=== PATIENT | male | born 1940 | race American Indian/Alaskan Native ===

== ENCOUNTER 2016-07-24 12:15 | Emergency (ER) | payer MEDICARE, OTHER ==
[2016-07-24 12:39] VITALS: BP 145/89
--- NOTE | 2016-07-24 12:47 | EDM.PDOC ---
ED HISTORY OF PRESENT ILLNESS - General Chief Complaint: Respiratory Problem Stated Complaint: [id number] CANT BREATHE PLUGGED UP Time Seen by Provider: 07/24/16 12:46 Source of Information: Reports: Patient History Limitations: Reports: No limitations - History of Present Illness INITIAL COMMENTS - FREE TEXT/NARRATIVE: 75 yo [place] male c/o fever last night and productive cough of green sputum X one month. PMHx. COPD Symptom Onset Date: 06/23/16 Symptom Onset Time: 12:00 Timing/Duration: Reports: Week(s): Severity: moderate Location, General: Reports: chest Worsens with: Reports: Breathing - Related Data Allergies/ADRs: Allergies Allergy/AdvReac Type Severity Reaction Status Date / Time cephalexin Allergy Hives Verified 07/24/16 12:39 Penicillins Allergy Hives Verified 07/24/16 12:39 Home Meds: Home Meds Acetaminophen [Tylenol] 325 mg PO Q4HR PRN 08/25/15 [History] Aspirin [Ecotrin] 325 mg PO DAILY 08/25/15 [History] Fluticasone/Salmeterol [Advair Diskus 500-50] 1 puff INH BID 08/25/15 [History] Lisinopril 20 mg PO DAILY 08/25/15 [History] Montelukast [Singulair] 10 mg PO BEDTIME 08/25/15 [History] Nitroglycerin [Nitrostat] 0.4 mg SL ASDIRECTED PRN 08/25/15 [History] Tamsulosin [Flomax] 0.4 mg PO BEDTIME 08/25/15 [History] Tiotropium [Spiriva HandiHaler] 18 mcg INH DAILY 08/25/15 [History] atorvaSTATin [Lipitor] 20 mg PO BEDTIME 08/25/15 [History] metFORMIN [Glucophage] 1,000 mg PO BIDMEALS 08/25/15 [History] Glimepiride [Amaryl] 2 mg PO WITHBREAKFAST 08/26/15 [History] Albuterol/Ipratropium [DuoNeb 3.0-0.5 MG/3 ML] 1 dose INH Q8HR PRN 11/10/15 [ History] Ferrous Sulfate 1 tab PO BID 11/10/15 [History] Omeprazole Magnesium [Prilosec Otc] 1 cap PO DAILY 11/10/15 [History] Magnesium 400 mg PO BID 07/24/16 [History] Metoprolol Succinate [Toprol XL] 25 mg PO DAILY 07/24/16 [History] Solifenacin Succinate [Vesicare] 10 mg PO DAILY 07/24/16 [History] amLODIPine [Norvasc] 10 mg PO DAILY 07/24/16 [History] Past Medical History Cardiovascular History: Reports: CAD, Heart Failure, High cholesterol, Hypertension, Pacemaker Respiratory History: Reports: Asthma, COPD Gastrointestinal History: Reports: GI bleed Genitourinary History: Reports: Acute renal failure, Prostate disorder Musculoskeletal History: Reports: Fracture Endocrine/Metabolic History: Reports: Diabetes, type II Oncologic (Cancer) History: Reports: Prostate - Past Surgical History HEENT Surgical History: Reports: Cataract surgery Cardiovascular Surgical History: Reports: Coronary artery bypass Other Cardiovascular Surgeries/Procedures: 4 vascular stents Musculoskeletal Surgical History: Reports: Other (see below) Other Musculoskeletal Surgeries/Procedures:: foot ankle fracture open reduction internal fixation Social & Family History - Family History Family Medical History: Noncontributory - Tobacco Use Smoking Status *Q: Former Smoker Years of Tobacco use: 44 Used Tobacco, but Quit: Yes Month Tobacco Last Used: unknown Second Hand Smoke Exposure: Yes - Caffeine Use Caffeine Use: Reports: Soda, Tea - Alcohol Use Days Per Week of Alcohol Use: 0 - Recreational Drug Use Recreational Drug Use: No ED ROS GENERAL - Review of Systems Review Of Systems: See Below Constitutional: Reports: no symptoms HEENT: Reports: No symptoms Respiratory: Reports: Cough, Sputum (green thick ) Cardiovascular: Reports: No symptoms Endocrine: Reports: no symptoms GI/Abdominal: Reports: No symptoms : Reports: no symptoms Musculoskeletal: Reports: no symptoms Skin: Reports: no symptoms Neurological: Reports: No Symptoms Psychiatric: Reports: No symptoms Hematologic/Lymphatic: Reports: no symptoms Immunologic: Reports: no symptoms ED EXAM, GENERAL - Physical Exam Exam: See Below Exam Limited By: No limitations General Appearance: alert, no apparent distress, obese Eye Exam: bilateral eye: EOMI Ears: normal external exam Nose: normal inspection Throat/Mouth: Normal inspection Head: atraumatic Neck: normal inspection, supple Respiratory/Chest: rhonchi (bilateral mainly expiratory) Cardiovascular: normal peripheral pulses GI/Abdominal: normal bowel sounds, soft Back Exam: normal inspection Extremities: normal inspection, normal range of motion Neurological: alert, oriented, CN II-XII intact Psychiatric: normal affect Skin Exam: Warm, Dry, Intact Lymphatic: no adenopathy Course - Vital Signs Last Recorded V/S: Last Vital Signs Temp 35.9 C 07/24/16 12:26 Pulse 75 07/24/16 12:26 Resp 16 07/24/16 12:26 BP 145/89 H 07/24/16 12:26 Pulse Ox 96 07/24/16 12:26 - Orders/Labs/Meds Labs: Laboratory Tests 07/24/16 07/24/16 07/24/16 Range/Units 13:20 13:20 13:20 WBC 7.8 (5.0-10.0) 10^3/uL RBC 4.05 L (4.6-6.2) 10^6/uL Hgb 13.3 L (14.0-18.0) g/dL Hct 39.1 L (40.0-54.0) % MCV 96.5 (80-100) fL MCH 32.8 (27.0-34.0) pg MCHC 34.0 (33.0-35.0) g/dL Plt Count 177 (150-450) 10^3/uL Neut % (Auto) 75.5 H (42.2-75.2) % Lymph % (Auto) 12.9 L (20.5-50.1) % [place] % (Auto) 8.4 H (2-8) % Eos % (Auto) 2.9 (1.0-3.0) % Baso % (Auto) 0.3 (0.0-1.0) % Sodium 141 (135-145) mmol/L Potassium 4.0 (3.6-5.0) mmol/L Chloride 106 (101-111) mmol/L Carbon Dioxide 26.0 (21.0-31.0) mmol/L Anion Gap 13.0 BUN 19 H (7-18) mg/dL Creatinine 1.0 (0.6-1.3) mg/dL Est Cr Clr Drug Dosing 67.96 mL/min Estimated GFR (MDRD) > 60 BUN/Creatinine Ratio 19.00 Glucose 101 (74-105) mg/dL Lactic Acid 1.3 (0.5-2.2) mmol/L Calcium 8.9 (8.4-10.2) mg/dl Total Bilirubin 0.8 (0.2-1.0) mg/dL AST 16 (10-42) IU/L ALT 14 (10-60) IU/L Alkaline Phosphatase 51 (42-121) IU/L B-Natriuretic Peptide 570 H (0-100) pg/ml Total Protein 6.9 (6.7-8.2) g/dl Albumin 4.0 (3.2-5.5) g/dl Globulin 2.9 Albumin/Globulin Ratio 1.38 Meds: Medications Discontinued Medications Generic Name Dose Route Start Last Admin Trade Name Mushtaq PRN Reason Stop Dose Admin Furosemide 20 mg 07/24/16 14:11 Lasix PO 07/24/16 14:12 ONETIME ONE Guaifenesin 1,200 mg 07/24/16 12:58 07/24/16 13:27 Mucinex PO 07/24/16 12:59 1,200 mg STAT ONE Administration Departure - Departure Time of Disposition: 14:12 Disposition: Home, Self-Care 01 Condition: fair Clinical Impression: CHF (congestive heart failure) Qualifiers: Congestive heart failure type: unspecified congestive heart failure type Congestive heart failure chronicity: unspecified congestive heart failure chronicity Qualified Code(s): I50.9 - Heart failure, unspecified COPD (chronic obstructive pulmonary disease) Qualifiers: COPD type: COPD with acute exacerbation Qualified Code(s): J44.1 - Chronic obstructive pulmonary disease with (acute) exacerbation Instructions: Chronic Obstructive Pulmonary Disease Exacerbation, [id number] Forms: ED Department Discharge Additional Instructions: Please take your medication as prescribed by your doctor F/U w/ your PCP Tuesday07/26/2016
[2016-07-24] MEDS ORDERED: guaiFENesin 600 MG Tab.ER PO ONE (12:58)
[2016-07-24 13:54] LABS: CHLORIDE,CL 106 mmol/L (101-111); SODIUM,NA 141 mmol/L (135-145)
[2016-07-24] MEDS ORDERED: Furosemide 20 MG Tab PO ONE (14:11)
== END 2016-07-24 14:33 | disposition home or self-care (01) ==
LOC: DL.ED 12:15
DX: I11.0 Hypertensive heart disease with heart failure (principal); I50.9 Heart failure, unspecified; J44.1 Chronic obstructive pulmonary disease with (acute) exacerbation; E78.00 Pure hypercholesterolemia, unspecified; J45.909 Unspecified asthma, uncomplicated; E11.9 Type 2 diabetes mellitus without complications; I25.810 Atherosclerosis of coronary artery bypass graft(s) without angina pectoris; Z87.891 Personal history of nicotine dependence; Z79.82 Long term (current) use of aspirin; Z79.84 Long term (current) use of oral hypoglycemic drugs; Z88.0 Allergy status to penicillin; Z88.1 Allergy status to other antibiotic agents; Z79.899 Other long term (current) drug therapy; Z98.49 Cataract extraction status, unspecified eye
CPT/HCPCS: 36415; 71020; 80053; 83605; 83880; 85025; 99283; A9270; 99284

== ENCOUNTER 2016-08-17 16:25 | Emergency (ER) | payer MEDICARE, OTHER ==
--- NOTE | 2016-08-17 16:53 | EDM.PDOC ---
ED HISTORY OF PRESENT ILLNESS - General Chief Complaint: Cardiovascular Problem Stated Complaint: sob Time Seen by Provider: 08/17/16 16:45 Source of Information: Reports: Patient History Limitations: Reports: No limitations - History of Present Illness INITIAL COMMENTS - FREE TEXT/NARRATIVE: This 75 yo male patient was sent to the ED from the [facility] due to increased shortness of breath over the past 2 days. The patient reports a history of numerous stents placed in the past, a pacemaker in place and CHF. The patient normally sees Dr. Arana (Radiology Assistant). The patient reports he is scheduled to see Dr. Arana next week. The patient reports last night he slept in a chair due to the increased shortness of breath. Symptom Onset Date: 08/16/16 Timing/Duration: Reports: Constant, Getting worse Severity: moderate Location, General: Reports: chest Quality: Reports: Dull Improves with: Reports: Rest Worsens with: Reports: Movement Associated Symptoms (General): Reports: shortness of breath, weakness - Related Data Allergies/ADRs: Allergies Allergy/AdvReac Type Severity Reaction Status Date / Time cephalexin Allergy Hives Verified 08/17/16 16:32 Penicillins Allergy Hives Verified 08/17/16 16:32 Home Meds: Home Meds Acetaminophen [Tylenol] 650 mg PO Q4HR PRN 08/25/15 [History] Aspirin [Ecotrin] 325 mg PO DAILY 08/25/15 [History] Lisinopril 20 mg PO DAILY 08/25/15 [History] Montelukast [Singulair] 10 mg PO BEDTIME 08/25/15 [History] Tamsulosin [Flomax] 0.4 mg PO BEDTIME 08/25/15 [History] Tiotropium [Spiriva HandiHaler] 18 mcg INH DAILY 08/25/15 [History] atorvaSTATin [Lipitor] 20 mg PO BEDTIME 08/25/15 [History] metFORMIN [Glucophage] 1,000 mg PO BIDMEALS 08/25/15 [History] Glimepiride [Amaryl] 2 mg PO WITHBREAKFAST 08/26/15 [History] Albuterol/Ipratropium [DuoNeb 3.0-0.5 MG/3 ML] 1 dose INH Q4H PRN 11/10/15 [ History] Ferrous Sulfate 1 tab PO BID 11/10/15 [History] Omeprazole Magnesium [Prilosec Otc] 1 cap PO DAILY 11/10/15 [History] Magnesium 400 mg PO BID 07/24/16 [History] Metoprolol Succinate [Toprol XL] 25 mg PO DAILY 07/24/16 [History] Solifenacin Succinate [Vesicare] 10 mg PO DAILY 07/24/16 [History] amLODIPine [Norvasc] 10 mg PO DAILY 07/24/16 [History] Fluticasone Propionate [Clarispray] 2 spray NASBOTH DAILY 08/17/16 [History] Furosemide 20 mg PO DAILY 08/17/16 [History] Furosemide 40 mg PO ASDIRECTED 08/17/16 [History] Levalbuterol Tartrate [Xopenex Hfa] 2 puff INH Q4H PRN 08/17/16 [History] Loratadine 10 mg PO DAILY 08/17/16 [History] Mometasone Furoate [Asmanex] 1 puff INH DAILY 08/17/16 [History] Mometasone/Formoterol [Dulera 200-5 MCG] 2 puff INH BID 08/17/16 [History] Sodium Chloride 0.65% [[place] Nasal [place]] 2 sprays NASBOTH QID 08/17/16 [History ] Past Medical History HEENT History: Reports: Impaired vision Other HEENT History: wears glasses Cardiovascular History: Reports: CAD, Heart Failure, High cholesterol, Hypertension, Pacemaker Respiratory History: Reports: Asthma, COPD Gastrointestinal History: Reports: GI bleed Genitourinary History: Reports: Acute renal failure, Prostate disorder Musculoskeletal History: Reports: Fracture Neurological History: Reports: None Psychiatric History: Reports: None Endocrine/Metabolic History: Reports: Diabetes, type II Oncologic (Cancer) History: Reports: Prostate Dermatologic History: Reports: None - Past Surgical History HEENT Surgical History: Reports: Cataract surgery Cardiovascular Surgical History: Reports: Coronary artery bypass Other Cardiovascular Surgeries/Procedures: 4 vascular stents Musculoskeletal Surgical History: Reports: Other (see below) Other Musculoskeletal Surgeries/Procedures:: foot ankle fracture open reduction internal fixation Social & Family History - Family History Family Medical History: Noncontributory - Tobacco Use Smoking Status *Q: Former Smoker Years of Tobacco use: 44 Packs/Tins Daily: 1 Used Tobacco, but Quit: Yes Month Tobacco Last Used: 1998 Second Hand Smoke Exposure: Yes - Caffeine Use Caffeine Use: Reports: Soda - Alcohol Use Days Per Week of Alcohol Use: 0 - Recreational Drug Use Recreational Drug Use: No ED ROS GENERAL - Review of Systems Review Of Systems: ROS reveals no pertinent complaints other than HPI. ED EXAM, GENERAL - Physical Exam Exam: See Below Exam Limited By: No limitations General Appearance: alert, WD/WN, moderate distress Eye Exam: bilateral eye: EOMI, normal inspection, PERRL Ears: normal external exam, normal canal, hearing grossly normal, normal TMs Nose: normal inspection, normal mucosa, no blood Throat/Mouth: Normal inspection, Normal lips, Normal teeth, Normal gums, Normal oropharynx, Normal voice, No airway compromise Head: atraumatic, normocephalic Neck: normal inspection, supple, non-tender, full range of motion Respiratory/Chest: no respiratory distress, lungs clear, normal breath sounds, no accessory muscle use, chest non-tender Cardiovascular: normal peripheral pulses, systolic murmur, other (numerous irregular beats (PVC's) ) GI/Abdominal: normal bowel sounds, soft, non tender, no organomegaly, no distention, no abnormal bruit, no mass (Male) Exam: Deferred Rectal (Males) Exam: Deferred Back Exam: normal inspection, full range of motion, NT Extremities: normal inspection, normal range of motion, non-tender, normal capillary refill, no pedal edema Neurological: alert, oriented, CN II-XII intact, normal cognition, normal gait, normal reflexes, no motor/sensory deficits Psychiatric: normal affect, normal mood Skin Exam: Warm, Dry, Intact, Normal color, No rash Lymphatic: no adenopathy Course - Vital Signs Last Recorded V/S: Last Vital Signs Temp 36.6 C 08/17/16 17:47 Pulse 93 08/17/16 17:47 Resp 16 08/17/16 17:47 BP 143/86 H 08/17/16 17:47 Pulse Ox 98 08/17/16 17:47 - Orders/Labs/Meds Orders: Active Orders 24 hr Category Date Time Status EKG Documentation Completion [RC] URGENT Care 08/17/16 16:26 Active Labs: Laboratory Tests 08/17/16 08/17/16 08/17/16 Range/Units 16:28 16:28 16:28 WBC 12.2 H (5.0-10.0) 10^3/uL RBC 4.23 L (4.6-6.2) 10^6/uL Hgb 13.5 L (14.0-18.0) g/dL Hct 42.1 (40.0-54.0) % MCV 99.5 (80-100) fL MCH 31.9 (27.0-34.0) pg MCHC 32.1 L (33.0-35.0) g/dL Plt Count 178 (150-450) 10^3/uL Neut % (Auto) 80.4 H (42.2-75.2) % Lymph % (Auto) 8.3 L (20.5-50.1) % [place] % (Auto) 8.1 H (2-8) % Eos % (Auto) 3.0 (1.0-3.0) % Baso % (Auto) 0.2 (0.0-1.0) % Sodium 140 (135-145) mmol/L Potassium 3.5 L (3.6-5.0) mmol/L Chloride 100 L (101-111) mmol/L Carbon Dioxide 32.0 H (21.0-31.0) mmol/L Anion Gap 11.5 BUN 20 H (7-18) mg/dL Creatinine 0.9 (0.6-1.3) mg/dL Est Cr Clr Drug Dosing 76.64 mL/min Estimated GFR (MDRD) > 60 BUN/Creatinine Ratio 22.22 Glucose 154 H (74-105) mg/dL Calcium 8.8 (8.4-10.2) mg/dl Total Bilirubin 0.6 (0.2-1.0) mg/dL AST 16 (10-42) IU/L ALT 21 (10-60) IU/L Alkaline Phosphatase 48 (42-121) IU/L Troponin I 0.03 H* (0.00-0.02) ng/ml B-Natriuretic Peptide 765 H (0-100) pg/ml Total Protein 6.3 L (6.7-8.2) g/dl Albumin 3.7 (3.2-5.5) g/dl Globulin 2.6 Albumin/Globulin Ratio 1.42 Departure - Departure Time of Disposition: 17:25 Disposition: DC/Tfer to Acute Hospital 02 Reason for Transfer *Q: Other Condition: poor Clinical Impression: Multifocal PVCs with pairing Forms: Interfacility Transfer EMTALA Care Plan Goals: Discussed the history, examination, lab and EKG results with Dr. Covington. Dr. Covington accepted the patient for continued evaluation and further management. The patient will be transported by [facility]. - My Orders Last 24 Hours: My Active Orders 08/17/16 16:26 EKG Documentation Completion [RC] URGENT - Assessment/Plan Last 24 Hours: My Active Orders 08/17/16 16:26 EKG Documentation Completion [RC] URGENT
[2016-08-17 17:16] LABS: CHLORIDE,CL 100 mmol/L (101-111); SODIUM,NA 140 mmol/L (135-145)
[2016-08-17 17:48] VITALS: BP 143/86
--- NOTE | 2016-08-18 11:54 | EKG ---
08/17/2016 - JUDI BUTLER - The 12-lead EKG shows normal sinus rhythm with evidence of left bundle-branch block and also noted to have PVCs. Nonspecific ST-T wave changes noted. No significant ST elevation or ST depression noted on this 12-lead EKG, consistent with left bundle-branch block and PVCs. [facility] /[id number]
== END 2016-08-17 18:25 ==
LOC: DL.ED 16:25
DX: I49.3 Ventricular premature depolarization (principal); I25.10 Atherosclerotic heart disease of native coronary artery without angina pectoris; I50.9 Heart failure, unspecified; E78.00 Pure hypercholesterolemia, unspecified; I10 Essential (primary) hypertension; J44.9 Chronic obstructive pulmonary disease, unspecified; E11.9 Type 2 diabetes mellitus without complications; Z85.46 Personal history of malignant neoplasm of prostate; Z88.0 Allergy status to penicillin; Z87.891 Personal history of nicotine dependence; Z95.5 Presence of coronary angioplasty implant and graft; Z88.8 Allergy status to other drugs, medicaments and biological substances; Z79.899 Other long term (current) drug therapy; Z95.0 Presence of cardiac pacemaker
CPT/HCPCS: 36415; 71010; 80053; 83880; 84484; 85025; 93005; 93010; 99284; 99285

== ENCOUNTER 2016-12-19 13:47 | Inpatient (IN) | payer MEDICARE, OTHER ==
[2016-12-19] MEDS: Sodium Chloride 0.9% 10 ML Syringe FLUSH PRN ×3 (14:06→21:37)
[2016-12-19] MEDS ORDERED: Albuterol/Ipratropium 3.0-0.5 MG/3 ML Neb Soln NEB ONE (14:08)
--- NOTE | 2016-12-19 14:09 | EDM.PDOC ---
ED HPI GENERAL MEDICAL PROBLEM - General Chief Complaint: Respiratory Problem Stated Complaint: SOB Time Seen by Provider: 12/19/16 13:58 Source of Information: Reports: Patient History Limitations: Reports: No Limitations - History of Present Illness INITIAL COMMENTS - FREE TEXT/NARRATIVE: 76 yo male presents with shortness of breath while laying flat for the past 3 days. States that last night it became worse, especially with side laying. 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 Treatments - Related Data Allergies Allergy/AdvReac Type Severity Reaction Status Date / Time cephalexin Allergy Hives Verified 12/19/16 13:54 Penicillins Allergy Hives Verified 12/19/16 13:54 Home Meds: Home Meds Acetaminophen [Tylenol] 650 mg PO Q4HR PRN 08/25/15 [History] Aspirin [Ecotrin] 325 mg PO DAILY 08/25/15 [History] Lisinopril 20 mg PO DAILY 08/25/15 [History] Montelukast [Singulair] 10 mg PO BEDTIME 08/25/15 [History] Tamsulosin [Flomax] 0.4 mg PO BEDTIME 08/25/15 [History] Tiotropium [Spiriva HandiHaler] 18 mcg INH DAILY 08/25/15 [History] atorvaSTATin [Lipitor] 20 mg PO BEDTIME 08/25/15 [History] metFORMIN [Glucophage] 1,000 mg PO BIDMEALS 08/25/15 [History] Glimepiride [Amaryl] 2 mg PO WITHBREAKFAST 08/26/15 [History] Albuterol/Ipratropium [DuoNeb 3.0-0.5 MG/3 ML] 1 dose INH Q4H PRN 11/10/15 [ History] Ferrous Sulfate 1 tab PO BID 11/10/15 [History] Omeprazole Magnesium [Prilosec Otc] 1 cap PO DAILY 11/10/15 [History] Magnesium 400 mg PO BID 07/24/16 [History] Metoprolol Succinate [Toprol XL] 25 mg PO DAILY 07/24/16 [History] Solifenacin Succinate [Vesicare] 10 mg PO DAILY 07/24/16 [History] amLODIPine [Norvasc] 10 mg PO DAILY 07/24/16 [History] Fluticasone Propionate [Clarispray] 2 spray NASBOTH DAILY 08/17/16 [History] Furosemide 40 mg PO BID 08/17/16 [History] Levalbuterol Tartrate [Xopenex Hfa] 2 puff INH Q4H PRN 08/17/16 [History] Loratadine 10 mg PO DAILY 08/17/16 [History] Mometasone Furoate [Asmanex] 1 puff INH DAILY 08/17/16 [History] Mometasone/Formoterol [Dulera 200-5 MCG] 2 puff INH BID 08/17/16 [History] Sodium Chloride 0.65% [[place] Nasal [place]] 2 sprays NASBOTH QID 08/17/16 [History ] Sacubitril/Valsartan [Entresto 97 mg-103 mg Tablet] 1 tab PO BID 12/19/16 [ History] Past Medical History HEENT History: Reports: Impaired Vision Other HEENT History: wears glasses Cardiovascular History: Reports: CAD, Heart Failure, High Cholesterol, Hypertension, Pacemaker Respiratory History: Reports: Asthma, COPD Gastrointestinal History: Reports: GI Bleed Genitourinary History: Reports: Acute Renal Failure, Prostate Disorder Musculoskeletal History: Reports: Fracture Neurological History: Reports: None Psychiatric History: Reports: None Endocrine/Metabolic History: Reports: Diabetes, Type II Oncologic (Cancer) History: Reports: Prostate Dermatologic History: Reports: None - Past Surgical History HEENT Surgical History: Reports: Cataract Surgery Cardiovascular Surgical History: Reports: Coronary Artery Bypass Musculoskeletal Surgical History: Reports: Other (See Below) Social & Family History - Family History Family Medical History: Noncontributory - Tobacco Use Smoking Status *Q: Former Smoker Years of Tobacco use: 44 Packs/Tins Daily: 1 Used Tobacco, but Quit: Yes Month Tobacco Last Used: 1998 Second Hand Smoke Exposure: Yes - Caffeine Use Caffeine Use: Reports: Soda - Alcohol Use Days Per Week of Alcohol Use: 0 - Recreational Drug Use Recreational Drug Use: No ED ROS GENERAL - Review of Systems Review Of Systems: ROS reveals no pertinent complaints other than HPI. ED EXAM, GENERAL - Physical Exam Exam: See Below Exam Limited By: No Limitations General Appearance: Alert, WD/WN, No Apparent Distress Eye Exam: Bilateral Eye: Normal Inspection Respiratory/Chest: Decreased Breath Sounds, Rhonchi, Wheezing (diffusely in all lobes) Cardiovascular: Normal Peripheral Pulses, Regular Rate, Rhythm, No Edema, No Gallop, No JVD, No Murmur, No Rub GI/Abdominal: Normal Bowel Sounds, Soft, Non-Tender, No Organomegaly, No Distention, No Abnormal Bruit, No Mass Neurological: Alert, Oriented, Normal Cognition, Normal Gait Lymphatic: No Adenopathy Course - Vital Signs Last Recorded V/S: Last Vital Signs Temp 97.4 F 12/19/16 13:56 Pulse 84 12/19/16 14:28 Resp 20 12/19/16 13:56 BP 146/87 H 12/19/16 13:56 Pulse Ox 97 12/19/16 13:56 - Orders/Labs/Meds Orders: Active Orders 24 hr Category Date Time Status Cardiac Monitoring [RC] . DIRECTED Care 12/19/16 13:59 Active EKG Documentation Completion [RC] STAT Care 12/19/16 13:59 Active RT Aerosol Therapy [RC] ASDIRECTED Care 12/19/16 14:08 Active Sodium Chloride 0.9% [Saline Flush] Med 12/19/16 13:59 Active 10 ml FLUSH ASDIRECTED PRN Saline Lock Insert [OM.PC] Stat Oth 12/19/16 13:59 Ordered Medication Orders Sodium Chloride (Saline Flush) 10 ml FLUSH ASDIRECTED PRN PRN Reason: Keep Vein Open Last Admin: 12/19/16 14:52 Dose: 10 ml Admin: 12/19/16 14:06 Dose: 10 ml Labs: Laboratory Tests 12/19/16 12/19/16 12/19/16 Range/Units 13:56 13:56 13:56 WBC 7.5 (5.0-10.0) 10^3/uL RBC 4.02 L (4.6-6.2) 10^6/uL Hgb 13.4 L (14.0-18.0) g/dL Hct 40.8 (40.0-54.0) % MCV 101.5 H (80-100) fL MCH 33.3 (27.0-34.0) pg MCHC 32.8 L (33.0-35.0) g/dL Plt Count 152 (150-450) 10^3/uL Neut % (Auto) 72.0 (42.2-75.2) % Lymph % (Auto) 15.0 L (20.5-50.1) % [place] % (Auto) 8.7 H (2-8) % Eos % (Auto) 3.9 H (1.0-3.0) % Baso % (Auto) 0.4 (0.0-1.0) % PT 11.0 (9.0-12.0) SEC INR 1.1 (0.9-1.2) Sodium 146 H (135-145) mmol/L Potassium 4.2 (3.6-5.0) mmol/L Chloride 110 (101-111) mmol/L Carbon Dioxide 24.0 (21.0-31.0) mmol/L Anion Gap 16.2 BUN 20 H (7-18) mg/dL Creatinine 1.2 (0.6-1.3) mg/dL Est Cr Clr Drug Dosing TNP Estimated GFR (MDRD) 59 BUN/Creatinine Ratio 16.66 Glucose 109 H (74-105) mg/dL Calcium 8.9 (8.4-10.2) mg/dl Total Bilirubin 0.9 (0.2-1.0) mg/dL AST 24 (10-42) IU/L ALT 34 (10-60) IU/L Alkaline Phosphatase 62 (42-121) IU/L Creatine Kinase (26-174) IU/L Creatine Kinase Index (0-2.4) % CK-MB (CK-2) (0.4-4.7) ng/mL Troponin I 0.02 (0.00-0.02) ng/ml B-Natriuretic Peptide 1390 H (0-100) pg/ml Total Protein 7.0 (6.7-8.2) g/dl Albumin 4.0 (3.2-5.5) g/dl Globulin 3.0 Albumin/Globulin Ratio 1.33 Urine Color (YELLOW) Urine Appearance (CLEAR) Urine pH (5.0-9.0) Ur Specific [place] (1.005-1.030) Urine Protein (NEGATIVE) Urine Glucose (UA) (NEGATIVE) Urine Ketones (NEGATIVE) Urine Occult Blood (NEGATIVE) Urine Nitrite (NEGATIVE) Urine Bilirubin (NEGATIVE) Urine Urobilinogen (0.2-1.0) mg/dL Ur Leukocyte Esterase (NEGATIVE) Urine RBC /HPF Urine WBC (0-5/HPF) /HPF Ur Epithelial Cells /HPF Urine Bacteria (0-FEW/HPF) /HPF Hyaline Casts /LPF 12/19/16 12/19/16 Range/Units 13:56 14:16 WBC (5.0-10.0) 10^3/uL RBC (4.6-6.2) 10^6/uL Hgb (14.0-18.0) g/dL Hct (40.0-54.0) % MCV (80-100) fL MCH (27.0-34.0) pg MCHC (33.0-35.0) g/dL Plt Count (150-450) 10^3/uL Neut % (Auto) (42.2-75.2) % Lymph % (Auto) (20.5-50.1) % [place] % (Auto) (2-8) % Eos % (Auto) (1.0-3.0) % Baso % (Auto) (0.0-1.0) % PT (9.0-12.0) SEC INR (0.9-1.2) Sodium (135-145) mmol/L Potassium (3.6-5.0) mmol/L Chloride (101-111) mmol/L Carbon Dioxide (21.0-31.0) mmol/L Anion Gap BUN (7-18) mg/dL Creatinine (0.6-1.3) mg/dL Est Cr Clr Drug Dosing Estimated GFR (MDRD) BUN/Creatinine Ratio Glucose (74-105) mg/dL Calcium (8.4-10.2) mg/dl Total Bilirubin (0.2-1.0) mg/dL AST (10-42) IU/L ALT (10-60) IU/L Alkaline Phosphatase (42-121) IU/L Creatine Kinase 54 (26-174) IU/L Creatine Kinase Index 3.3 H (0-2.4) % CK-MB (CK-2) 1.80 (0.4-4.7) ng/mL Troponin I (0.00-0.02) ng/ml B-Natriuretic Peptide (0-100) pg/ml Total Protein (6.7-8.2) g/dl Albumin (3.2-5.5) g/dl Globulin Albumin/Globulin Ratio Urine Color Light yellow (YELLOW) Urine Appearance Clear (CLEAR) Urine pH 5.5 (5.0-9.0) Ur Specific [place] <= 1.005 (1.005-1.030) Urine Protein Negative (NEGATIVE) Urine Glucose (UA) Negative (NEGATIVE) Urine Ketones Negative (NEGATIVE) Urine Occult Blood Negative (NEGATIVE) Urine Nitrite Negative (NEGATIVE) Urine Bilirubin Negative (NEGATIVE) Urine Urobilinogen 0.2 (0.2-1.0) mg/dL Ur Leukocyte Esterase Negative (NEGATIVE) Urine RBC 0-5 /HPF Urine WBC 0-5 (0-5/HPF) /HPF Ur Epithelial Cells Rare /HPF Urine Bacteria Rare (0-FEW/HPF) /HPF Hyaline Casts Few H /LPF Meds: Medications Generic Name Dose Route Start Last Admin Trade Name Freq PRN Reason Stop Dose Admin Sodium Chloride 10 ml 12/19/16 13:59 12/19/16 14:52 Saline Flush FLUSH 10 ml ASDIRECTED PRN Administration Keep Vein Open Discontinued Medications Generic Name Dose Route Start Last Admin Trade Name Freq PRN Reason Stop Dose Admin Albuterol/Ipratropium 3 ml 12/19/16 14:08 12/19/16 14:27 Duoneb 3.0-0.5 Mg/3 Ml NEB 12/19/16 14:09 3 ml ONETIME ONE Administration Furosemide 40 mg 12/19/16 14:45 12/19/16 14:52 Lasix IVPUSH 12/19/16 14:46 40 mg NOW ONE Administration - Re-Assessments/Exams Free Text/Narrative Re-Assessment/Exam: 12/19/16 15:[address] Casas who accepts patient in observation status. Departure - Departure Time of Disposition: 15:46 Disposition: Refer to Observation Condition: Good Clinical Impression: CHF (congestive heart failure) Qualifiers: Congestive heart failure type: unspecified congestive heart failure type Congestive heart failure chronicity: unspecified congestive heart failure chronicity Qualified Code(s): I50.9 - Heart failure, unspecified - Discharge Information Forms: ED Department Discharge - My Orders Last 24 Hours: My Active Orders 12/19/16 13:59 Cardiac Monitoring [RC] . DIRECTED EKG Documentation Completion [RC] STAT Sodium Chloride 0.9% [Saline Flush] 10 ml FLUSH ASDIRECTED PRN Saline Lock Insert [OM.PC] Stat 12/19/16 14:08 RT Aerosol Therapy [RC] ASDIRECTED - Assessment/Plan Last 24 Hours: My Active Orders 12/19/16 13:59 Cardiac Monitoring [RC] . DIRECTED EKG Documentation Completion [RC] STAT Sodium Chloride 0.9% [Saline Flush] 10 ml FLUSH ASDIRECTED PRN Saline Lock Insert [OM.PC] Stat 12/19/16 14:08 RT Aerosol Therapy [RC] ASDIRECTED
[2016-12-19 14:28] LABS: CHLORIDE,CL 110 mmol/L (101-111); SODIUM,NA 146 mmol/L (135-145)
[2016-12-19] MEDS ORDERED: Furosemide 40 MG/4 ML VIAL IVPUSH ONE (14:45)
[2016-12-19] MEDS ORDERED: Albuterol/Ipratropium 3.0-0.5 MG/3 ML Neb Soln INH PRN (16:42)
[2016-12-19] MEDS ORDERED: Zolpidem 5 MG Tab PO PRN (17:08)
[2016-12-19] MEDS ORDERED: oxyCODONE 5 MG Tab PO PRN (17:08)
[2016-12-19] MEDS ORDERED: Sodium Chloride 0.9% 10 ML Syringe FLUSH PRN (17:08)
[2016-12-19] MEDS ORDERED: Docusate Sodium 100 MG Cap PO PRN (17:08)
--- NOTE | 2016-12-19 17:50 | PCM.HP ---
H&P History of Present Illness - General Date of Service: 12/19/16 Admit Problem/Dx: Admission Diagnosis/Problem Admission Diagnosis/Problem Dyspnea Source of Information: Patient - History of Present Illness Initial Comments - Free Text/Narative: The patient is a 76-year-old gentleman with a history of coronary artery disease , COPD, chronic systolic congestive heart failure. The patient presented with the increasing shortness of breath for about 3 days. The shortness of breath is worse with activity and laying down. There is no associated chest pain. There is no cough, fever. He tried to use his nebulizers without much help. There is associated leg swelling. - Related Data Allergies/Adverse Reactions: Allergies Allergy/AdvReac Type Severity Reaction Status Date / Time cephalexin Allergy Hives Verified 12/19/16 16:36 Penicillins Allergy Hives Verified 12/19/16 16:36 Home Medications: Home Meds Acetaminophen [Tylenol] 650 mg PO Q4HR PRN 08/25/15 [History] Aspirin [Ecotrin] 325 mg PO DAILY 08/25/15 [History] Lisinopril 20 mg PO DAILY 08/25/15 [History] Montelukast [Singulair] 10 mg PO BEDTIME 08/25/15 [History] Tamsulosin [Flomax] 0.4 mg PO BEDTIME 08/25/15 [History] Tiotropium [Spiriva HandiHaler] 18 mcg INH DAILY 08/25/15 [History] atorvaSTATin [Lipitor] 20 mg PO BEDTIME 08/25/15 [History] metFORMIN [Glucophage] 1,000 mg PO BIDMEALS 08/25/15 [History] Glimepiride [Amaryl] 2 mg PO WITHBREAKFAST 08/26/15 [History] Albuterol/Ipratropium [DuoNeb 3.0-0.5 MG/3 ML] 1 dose INH Q4H PRN 11/10/15 [ History] Ferrous Sulfate 1 tab PO BID 11/10/15 [History] Omeprazole Magnesium [Prilosec Otc] 1 cap PO DAILY 11/10/15 [History] Magnesium 400 mg PO BID 07/24/16 [History] Metoprolol Succinate [Toprol XL] 25 mg PO DAILY 07/24/16 [History] Solifenacin Succinate [Vesicare] 10 mg PO DAILY 07/24/16 [History] amLODIPine [Norvasc] 10 mg PO DAILY 07/24/16 [History] Furosemide 40 mg PO BID 08/17/16 [History] Levalbuterol Tartrate [Xopenex Hfa] 2 puff INH Q4H PRN 08/17/16 [History] Loratadine 10 mg PO DAILY 08/17/16 [History] Sodium Chloride 0.65% [[place] Nasal [place]] 2 sprays NASBOTH QID PRN 08/17/16 [ History] Sacubitril/Valsartan [Entresto 97 mg-103 mg Tablet] 1 tab PO BID 12/19/16 [ History] Past Medical History HEENT History: Reports: Impaired Vision Other HEENT History: wears glasses Cardiovascular History: Reports: CAD, Heart Failure, High Cholesterol, Hypertension, Pacemaker Respiratory History: Reports: Asthma, COPD Gastrointestinal History: Reports: GI Bleed Genitourinary History: Reports: Acute Renal Failure, Prostate Disorder Musculoskeletal History: Reports: Fracture Neurological History: Reports: None Psychiatric History: Reports: None Endocrine/Metabolic History: Reports: Diabetes, Type II Oncologic (Cancer) History: Reports: Prostate Dermatologic History: Reports: None - Past Surgical History HEENT Surgical History: Reports: Cataract Surgery Cardiovascular Surgical History: Reports: Coronary Artery Bypass Musculoskeletal Surgical History: Reports: Other (See Below) Social & Family History - Family History Family Medical History: Noncontributory - Tobacco Use Smoking Status *Q: Former Smoker Years of Tobacco use: 30 Packs/Tins Daily: 1.5 Used Tobacco, but Quit: Yes Month Tobacco Last Used: June Second Hand Smoke Exposure: No - Caffeine Use Caffeine Use: Reports: Soda - Alcohol Use Days Per Week of Alcohol Use: 0 - Recreational Drug Use Recreational Drug Use: No H&P Review of Systems - Review of Systems: Review Of Systems: See Below General: Denies: Fever, Chills Pulmonary: Reports: Shortness of Breath Cardiovascular: Denies: Chest Pain Gastrointestinal: Denies: Abdominal Pain Genitourinary: Denies: Dysuria Psychiatric: Denies: Confusion Exam - Exam Exam: See Below - Vital Signs Vital Signs: Last Vital Signs Temp 36.6 C 12/19/16 16:09 Pulse 77 12/19/16 16:09 Resp 20 12/19/16 16:09 BP 136/85 12/19/16 16:09 Pulse Ox 97 12/19/16 16:09 Weight: 104.78 kg - Exam General: Alert, Oriented Neck: Supple Lungs: Normal Respiratory Effort, Decreased Breath Sounds, Rhonchi (Basilar) Cardiovascular: Regular Rate, Regular Rhythm GI/Abdominal Exam: Normal Bowel Sounds, Soft, Non-Tender Extremities: Pedal Edema (Bilateral 1+) Neuro Extensive - Mental Status: Alert, Oriented x3, Normal Mood/Affect - Patient Data Result Diagrams: 12/19/16 13:56 12/19/16 13:56 Imaging Impressions Last 24 hrs: Chest x-ray per my reading shows cardiomegaly *Q Meaningful Use (ADM) - VTE *Q VTE Criteria *Q: - Stroke *Q Stroke Criteria *Q: - AMI *Q AMI Criteria *Q: - Problem List (1) Acute systolic (congestive) heart failure SNOMED Code(s): 099559534, 077335504 ICD Code: I50.21 - ACUTE SYSTOLIC (CONGESTIVE) HEART FAILURE Status: Acute Current Visit: Yes (2) CAD (coronary artery disease) SNOMED Code(s): 09651104 ICD Code: I25.10 - ATHSCL HEART DISEASE OF [place] CORONARY ARTERY W/O ANG PCTRS Status: Acute Current Visit: No Qualifiers: Coronary Disease-Associated Artery/Lesion type: unspecified vessel or lesion type [place] vs. transplanted heart: [place] heart Associated angina: without angina Qualified Code(s): I25.10 - Atherosclerotic heart disease of [place] coronary artery without angina pectoris (3) COPD (chronic obstructive pulmonary disease) SNOMED Code(s): 71018301 ICD Code: J44.9 - CHRONIC OBSTRUCTIVE PULMONARY DISEASE, UNSPECIFIED Status : Acute Priority: High Current Visit: No Qualifiers: COPD type: COPD with acute exacerbation Qualified Code(s): J44.1 - Chronic obstructive pulmonary disease with (acute) exacerbation (4) Type 2 diabetes mellitus SNOMED Code(s): 71676596 ICD Code: E11.9 - TYPE 2 DIABETES MELLITUS WITHOUT COMPLICATIONS Status: Acute Current Visit: No Qualifiers: Diabetes mellitus complication status: without complication Diabetes mellitus intermediate frame tender insulin use: without mcc use Qualified Code(s): E11.9 - Type 2 diabetes mellitus without complications Problem List Initiated/Reviewed/Updated: Yes Orders Last 24hrs: Active Orders 24 hr Category Date Time Status Patient Status [ADT] Routine ADT 12/19/16 17:08 Ordered Antiembolic Devices [RC] PER UNIT ROUTINE Care 12/19/16 17:10 Ordered Blood Glucose Check, Bedside [RC] QIDACANDBED Care 12/19/16 17:08 Ordered Oxygen Therapy [RC] PRN Care 12/19/16 17:08 Ordered Up With Assistance [RC] ASDIRECTED Care 12/19/16 17:08 Ordered VTE/DVT Education [RC] PER UNIT ROUTINE Care 12/19/16 17:08 Ordered Vital Signs [RC] Q4H Care 12/19/16 17:08 Ordered 2 Gram Sodium Diet [DIET] Diet 12/19/16 Dinner Ordered TROPONIN I [CHEM] AM Lab 12/20/16 05:11 Ordered Acetaminophen [Tylenol] Med 12/19/16 17:08 Ordered 650 mg PO Q4H PRN Albuterol/Ipratropium [DuoNeb 3.0-0.5 MG/3 ML] Med 12/19/16 16:42 Ordered 1 dose INH Q4H PRN Aspirin [Ecotrin] Med 12/20/16 09:00 Ordered 325 mg PO DAILY Docusate Sodium [Colace] Med 12/19/16 17:08 Ordered 100 mg PO BID PRN Ferrous Sulfate Med 12/19/16 21:00 Ordered 1 tab PO BID Furosemide [Lasix] Med 12/19/16 21:00 Ordered 40 mg PO BID Glimepiride [Amaryl] Med 12/20/16 08:00 Ordered 2 mg PO WITHBREAKFAST Heparin Sodium Med 12/19/16 22:00 Ordered 5,000 units SUBCUT Q8HR Insulin Aspart [NovoLOG] Med 12/20/16 08:00 Ordered See Protocol SUBCUT TIDAC Loratadine [Claritin] Med 12/20/16 09:00 Ordered 10 mg PO DAILY Magnesium [Magnesium] Med 12/19/16 21:00 Ordered 400 mg PO BID Metoprolol Succinate [Toprol XL] Med 12/20/16 09:00 Ordered 25 mg PO DAILY Montelukast [Singulair] Med 12/19/16 21:00 Ordered 10 mg PO BEDTIME Omeprazole Magnesium [Prilosec Otc] Med 12/20/16 09:00 Ordered 1 cap PO DAILY Sacubitril/Valsartan [Entresto 97 mg-103 mg Tablet] Med 12/19/16 21:00 Ordered 1 tab PO BID Sodium Chloride 0.9% [Saline Flush] Med 12/19/16 17:08 Ordered 10 ml FLUSH ASDIRECTED PRN Solifenacin Succinate [Vesicare] Med 12/20/16 09:00 Ordered 10 mg PO DAILY Tamsulosin [Flomax] Med 12/19/16 21:00 Ordered 0.4 mg PO BEDTIME Tiotropium [Spiriva HandiHaler] Med 12/20/16 09:00 Ordered 18 mcg INH DAILY Zolpidem [Ambien] Med 12/19/16 17:08 Ordered 5 mg PO BEDTIME PRN amLODIPine [Norvasc] Med 12/20/16 09:00 Ordered 10 mg PO DAILY atorvaSTATin [Lipitor] Med 12/19/16 21:00 Ordered 20 mg PO BEDTIME oxyCODONE Med 12/19/16 17:08 Ordered 5 mg PO Q4H PRN Antiembolic Hose [OM.PC] Per Unit Routine Oth 12/19/16 17:10 Ordered Peripheral IV Insertion Adult [OM.PC] Routine Oth 12/19/16 17:08 Ordered Resuscitation Status Routine Resus Stat 12/19/16 17:08 Ordered Medication Orders Acetaminophen (Tylenol) 650 mg PO Q4H PRN PRN Reason: Pain (Mild 1-3)/fever Albuterol/Ipratropium (Duoneb 3.0-0.5 Mg/3 Ml) 3 ml INH Q4H PRN PRN Reason: Shortness of Breath Amlodipine Besylate (Norvasc) 10 mg PO DAILY [facility] Aspirin (Ecotrin) 325 mg PO DAILY [facility] Atorvastatin Calcium (Lipitor) 20 mg PO BEDTIME FRANCISCA Docusate Sodium (Colace) 100 mg PO BID PRN PRN Reason: Constipation Ferrous Sulfate (Ferrous Sulfate) 325 mg PO BID FR[facility]IS[facility] Furosemide (Lasix) 40 mg PO BIDDIURETIC FRANCISCA Glimepiride (Amaryl) 2 mg PO WITHBREAKFAST [facility] Heparin Sodium (Porcine) (Heparin Sodium) 5,000 units SUBCUT Q8HR [facility] Insulin Aspart (Novolog) 0 unit SUBCUT TIDAC FRANCISCA PRN Reason: Protocol Loratadine (Claritin) 10 mg PO DAILY [facility] Metoprolol Succinate (Toprol Xl) 25 mg PO DAILY [facility] Montelukast Sodium (Singulair) 10 mg PO BEDTIME FR[facility]ISCA Non-Formulary Medication (Magnesium [Magnesium]) 400 mg PO BID FR[facility]ISCA Sacubitril/Valsartan (Entresto) 97 Mg- 103 Mg Tablet Own Med 1 tab PO BID [facility]IS[facility] Non-Formulary Medication (Solifenacin Succinate [Vesicare]) 10 mg PO DAILY [facility] Omeprazole (Omeprazole) 20 mg PO ACBRK FRANCISCA Oxycodone HCl (Oxycodone) 5 mg PO Q4H PRN PRN Reason: Pain (moderate 4-6) Sodium Chloride (Saline Flush) 10 ml FLUSH ASDIRECTED PRN PRN Reason: Keep Vein Open Last Admin: 12/19/16 14:52 Dose: 10 ml Admin: 12/19/16 14:06 Dose: 10 ml Sodium Chloride (Saline Flush) 10 ml FLUSH ASDIRECTED PRN PRN Reason: Keep Vein Open Tamsulosin HCl (Flomax) 0.4 mg PO BEDTIME FRANCISCA Tiotropium [place] (Spiriva Handihaler) 18 mcg INH DAILY [facility] Zolpidem Tartrate (Ambien) 5 mg PO BEDTIME PRN PRN Reason: Sleep Assessment/Plan Comment:: Acute systolic congestive heart failure Last echo at [facility]: 07/2016 with ef 35-40% Received Lasix dose, diuresed well, feeling less short of breath We will continue Lasix twice a day continue valsartan COPD Treat with Singulair, spiriva Use albuterol when necessary Coronary artery disease Check repeat troponin Treat with aspirin, statin, metoprolol Continue Entresto History of hypertension Continue Norvasc, valsartan Diabetes Continue glimepiride Hold metformin Follow blood sugars use supplemental insulin as needed DVT prophylaxis will be with subcutaneous heparin
[2016-12-19] MEDS: Acetaminophen 325 MG Tab PO PRN (20:34)
[2016-12-19] MEDS ORDERED: Non-Formulary Medication 1 Each (Magnesium [Magnesium] 400 MG) PO SCH (21:00)
[2016-12-19] MEDS: Montelukast 10 MG Tab PO SCH (21:33)
[2016-12-19] MEDS: Tamsulosin 0.4 MG Cap.ER PO SCH (21:34)
[2016-12-19] MEDS: Ferrous Sulfate 325 MG Tab PO SCH (21:34)
[2016-12-19] MEDS: atorvaSTATin 20 MG Tab PO SCH (21:34)
[2016-12-19] MEDS: SACUBITRIL PO SCH (21:34)
[2016-12-19] MEDS: VALSARTAN PO SCH (21:34)
[2016-12-19] MEDS: Heparin Sodium 5,000 Units/ML Vial SUBCUT SCH (21:40)
[2016-12-19] MEDS: Benzocaine/Cetylpyridinium/Menthol Lozenge MUCMEM PRN (22:57)
[2016-12-20] MEDS: Omeprazole 20 MG Cap.CR PO SCH (06:25)
[2016-12-20] MEDS: Heparin Sodium 5,000 Units/ML Vial SUBCUT SCH ×3 (06:25→21:38)
[2016-12-20] MEDS: Benzocaine/Cetylpyridinium/Menthol Lozenge MUCMEM PRN ×2 (06:30→10:45)
[2016-12-20] MEDS ORDERED: Non-Formulary Medication 1 Each (Solifenacin Succinate [Vesicare] 10 MG) PO SCH (09:00)
[2016-12-20] MEDS: Loratadine 10 MG Tab PO SCH (10:31)
[2016-12-20] MEDS: Aspirin 325 MG Tab.EC PO SCH (10:31)
[2016-12-20] MEDS: Ferrous Sulfate 325 MG Tab PO SCH ×2 (10:32→21:35)
[2016-12-20] MEDS: Glimepiride 2 MG Tab PO SCH (10:32)
[2016-12-20] MEDS: Furosemide 40 MG Tab PO SCH ×2 (10:32→14:16)
[2016-12-20] MEDS: amLODIPine 5 MG Tab PO SCH (10:33)
[2016-12-20] MEDS: Metoprolol Succinate 25 MG Tab.ER PO SCH (10:33)
[2016-12-20] MEDS: SACUBITRIL PO SCH ×2 (10:36→21:37)
[2016-12-20] MEDS: VALSARTAN PO SCH ×2 (10:36→21:37)
[2016-12-20] MEDS: Tiotropium Inhaler 18 MCG Inhalation Powder Cap Kit of 5 INH SCH (10:43)
--- NOTE | 2016-12-20 11:27 | PCM.PN ---
- General Info Date of Service: 12/20/16 Admission Dx/Problem (Free Text): Admission Diagnosis/Problem Admission Diagnosis/Problem Dyspnea Subjective Update: Presentation with shortness of breath He is feeling better. Still was short of breath during the night. He had wheezing this morning, he says he is coughing and bringing up green sputum. No associated chest pain No fever Functional Status: Reports: Pain Controlled - Review of Systems General: Reports: Weakness. Denies: Fever Pulmonary: Reports: Shortness of Breath, Cough, Sputum Cardiovascular: Denies: Chest Pain Gastrointestinal: Denies: Abdominal Pain Genitourinary: Denies: Dysuria - Patient Data Vitals - Most Recent: Last Vital Signs Temp 36.3 C 12/20/16 07:00 Pulse 75 12/20/16 10:33 Resp 18 12/20/16 07:00 BP 132/98 H 12/20/16 10:33 Pulse Ox 99 12/20/16 07:00 Weight - Most Recent: 104.961 kg I&O - Last 24 Hours: Intake & Output 12/19/16 12/20/16 12/20/16 22:59 06:59 14:59 Intake Total 240 400 240 Output Total 400 450 Balance -160 -50 240 Lab Results Last 24 Hours: Laboratory Results - last 24 hr 12/19/16 12/20/16 12/20/16 Range/Units 21:11 06:10 06:10 WBC 5.2 (5.0-10.0) 10^3/uL RBC 3.79 L (4.6-6.2) 10^6/uL Hgb 12.4 L (14.0-18.0) g/dL Hct 38.7 L (40.0-54.0) % MCV 102.1 H (80-100) fL MCH 32.7 (27.0-34.0) pg MCHC 32.0 L (33.0-35.0) g/dL Plt Count 141 L (150-450) 10^3/uL Neut % (Auto) 62.2 (42.2-75.2) % Lymph % (Auto) 17.8 L (20.5-50.1) % [place] % (Auto) 10.9 H (2-8) % Eos % (Auto) 8.5 H (1.0-3.0) % Baso % (Auto) 0.6 (0.0-1.0) % Sodium 144 (135-145) mmol/L Potassium 3.8 (3.6-5.0) mmol/L Chloride 107 (101-111) mmol/L Carbon Dioxide 26.0 (21.0-31.0) mmol/L Anion Gap 14.8 BUN 21 H (7-18) mg/dL Creatinine 1.3 (0.6-1.3) mg/dL Est Cr Clr Drug Dosing 50.68 mL/min Estimated GFR (MDRD) 54 Glucose 90 (74-105) mg/dL POC Glucose 129 H (83-110) mg/dl Calcium 8.7 (8.4-10.2) mg/dl Troponin I 0.02 (0.00-0.02) ng/ml 12/20/16 12/20/16 Range/Units 07:55 10:57 WBC (5.0-10.0) 10^3/uL RBC (4.6-6.2) 10^6/uL Hgb (14.0-18.0) g/dL Hct (40.0-54.0) % MCV (80-100) fL MCH (27.0-34.0) pg MCHC (33.0-35.0) g/dL Plt Count (150-450) 10^3/uL Neut % (Auto) (42.2-75.2) % Lymph % (Auto) (20.5-50.1) % [place] % (Auto) (2-8) % Eos % (Auto) (1.0-3.0) % Baso % (Auto) (0.0-1.0) % Sodium (135-145) mmol/L Potassium (3.6-5.0) mmol/L Chloride (101-111) mmol/L Carbon Dioxide (21.0-31.0) mmol/L Anion Gap BUN (7-18) mg/dL Creatinine (0.6-1.3) mg/dL Est Cr Clr Drug Dosing mL/min Estimated GFR (MDRD) Glucose (74-105) mg/dL POC Glucose 102 171 H (83-110) mg/dl Calcium (8.4-10.2) mg/dl Troponin I (0.00-0.02) ng/ml Med Orders - Current: Current Medications Acetaminophen (Tylenol) 650 mg PO Q4H PRN PRN Reason: Pain (Mild 1-3)/fever Last Admin: 12/19/16 20:34 Dose: 650 mg Albuterol (Proventil Neb Soln) 2.5 mg NEB TIDRT [facility] Albuterol/Ipratropium (Duoneb 3.0-0.5 Mg/3 Ml) 3 ml INH Q4H PRN PRN Reason: Shortness of Breath Last Admin: 12/20/16 10:45 Dose: 3 ml Amlodipine Besylate (Norvasc) 10 mg PO DAILY [facility] Last Admin: 12/20/16 10:33 Dose: 10 mg Aspirin (Ecotrin) 325 mg PO DAILY [facility] Last Admin: 12/20/16 10:31 Dose: 325 mg Atorvastatin Calcium (Lipitor) 20 mg PO BEDTIME [facility] Last Admin: 12/19/16 21:34 Dose: 20 mg Benzocaine/Menthol (Cepacol Sore Throat) 1 lozenge MUCMEM Q2H PRN PRN Reason: Cough Last Admin: 12/20/16 10:45 Dose: 1 lozenge Budesonide (Pulmicort) 0.5 mg NEB BIDRT [facility] Docusate Sodium (Colace) 100 mg PO BID PRN PRN Reason: Constipation Ferrous Sulfate (Ferrous Sulfate) 325 mg PO BID [facility] Last Admin: 12/20/16 10:32 Dose: 325 mg Furosemide (Lasix) 40 mg PO BIDDIURETIC [facility] Last Admin: 12/20/16 10:32 Dose: 40 mg Glimepiride (Amaryl) 2 mg PO WITHBREAKFAST [facility] Last Admin: 12/20/16 10:32 Dose: 2 mg Heparin Sodium (Porcine) (Heparin Sodium) 5,000 units SUBCUT Q8HR [facility] Last Admin: 12/20/16 06:25 Dose: 5,000 units Levofloxacin/Dextrose 500 mg/ (Premix) 100 mls @ 100 mls/hr IV Q24H [facility] Insulin Aspart (Novolog) 0 unit SUBCUT TIDAC [facility] PRN Reason: Protocol Loratadine (Claritin) 10 mg PO DAILY [facility] Last Admin: 12/20/16 10:31 Dose: 10 mg Magnesium Oxide (Magnesium Oxide) 250 mg PO BIDM [facility] Last Admin: 12/20/16 10:32 Dose: 250 mg Metoprolol Succinate (Toprol Xl) 25 mg PO DAILY [facility] Last Admin: 12/20/16 10:33 Dose: 25 mg Montelukast Sodium (Singulair) 10 mg PO BEDTIME [facility] Last Admin: 12/19/16 21:33 Dose: 10 mg Sacubitril/Valsartan (Entresto) 97 Mg- 103 Mg Tablet Own Med 1 tab PO BID [facility] Last Admin: 12/20/16 10:36 Dose: 1 tab Omeprazole (Omeprazole) 20 mg PO ACBRK [facility] Last Admin: 12/20/16 06:25 Dose: 20 mg Oxycodone HCl (Oxycodone) 5 mg PO Q4H PRN PRN Reason: Pain (moderate 4-6) Sodium Chloride (Saline Flush) 10 ml FLUSH ASDIRECTED PRN PRN Reason: Keep Vein Open Last Admin: 12/19/16 21:37 Dose: 10 ml Sodium Chloride (Saline Flush) 10 ml FLUSH ASDIRECTED PRN PRN Reason: Keep Vein Open Tamsulosin HCl (Flomax) 0.4 mg PO BEDTIME [facility] Last Admin: 12/19/16 21:34 Dose: 0.4 mg Tiotropium [place] (Spiriva Handihaler) 18 mcg INH DAILY [facility] Last Admin: 12/20/16 10:43 Dose: 18 mcg Zolpidem Tartrate (Ambien) 5 mg PO BEDTIME PRN PRN Reason: Sleep Discontinued Medications Albuterol/Ipratropium (Duoneb 3.0-0.5 Mg/3 Ml) 3 ml NEB ONETIME ONE Stop: 12/19/16 14:09 Last Admin: 12/19/16 14:27 Dose: 3 ml Furosemide (Lasix) 40 mg IVPUSH NOW ONE Stop: 12/19/16 14:46 Last Admin: 12/19/16 14:52 Dose: 40 mg Non-Formulary Medication (Magnesium [Magnesium]) 400 mg PO BID [facility] Non-Formulary Medication (Solifenacin Succinate [Vesicare]) 10 mg PO DAILY [facility] - Exam General: Alert, Oriented Neck: Supple Lungs: Normal Respiratory Effort, Wheezing Cardiovascular: Regular Rate, Regular Rhythm GI/Abdominal Exam: Normal Bowel Sounds, Soft, Non-Tender Extremities: Pedal Edema (Trace bilateral) Skin: Warm, Dry (He didn't want to take 60) Neurological: No New Focal Deficit Psy/Mental Status: Alert, Normal Affect, Normal Mood - Problem List & Annotations (1) Acute systolic (congestive) heart failure SNOMED Code(s): 127987016, 700776639 Code(s): I50.21 - ACUTE SYSTOLIC (CONGESTIVE) HEART FAILURE Status: Acute Current Visit: Yes (2) CAD (coronary artery disease) SNOMED Code(s): 55464473 Code(s): I25.10 - ATHSCL HEART DISEASE OF [place] CORONARY ARTERY W/O ANG PCTRS Status: Acute Current Visit: No Qualifiers: Coronary Disease-Associated Artery/Lesion type: unspecified vessel or lesion type [place] vs. transplanted heart: [place] heart Associated angina: without angina Qualified Code(s): I25.10 - Atherosclerotic heart disease of [place] coronary artery without angina pectoris (3) COPD (chronic obstructive pulmonary disease) SNOMED Code(s): 75465952 Code(s): J44.9 - CHRONIC OBSTRUCTIVE PULMONARY DISEASE, UNSPECIFIED Status : Acute Priority: High Current Visit: No Qualifiers: COPD type: COPD with acute exacerbation Qualified Code(s): J44.1 - Chronic obstructive pulmonary disease with (acute) exacerbation (4) Type 2 diabetes mellitus SNOMED Code(s): 07021674 Code(s): E11.9 - TYPE 2 DIABETES MELLITUS WITHOUT COMPLICATIONS Status: Acute Current Visit: No Qualifiers: Diabetes mellitus complication status: without complication Diabetes mellitus retirement insulin use: without intermodal dispatcher use Qualified Code(s): E11.9 - Type 2 diabetes mellitus without complications - Problem List Review Problem List Initiated/Reviewed/Updated: Yes - My Orders Last 24 Hours: My Active Orders 12/19/16 16:42 Albuterol/Ipratropium [DuoNeb 3.0-0.5 MG/3 ML] 3 ml INH Q4H PRN 12/19/16 17:08 Blood Glucose Check, Bedside [RC] QIDACANDBED Oxygen Therapy [RC] PRN Up With Assistance [RC] ASDIRECTED VTE/DVT Education [RC] PER UNIT ROUTINE Vital Signs [RC] Q4H Acetaminophen [Tylenol] 650 mg PO Q4H PRN Docusate Sodium [Colace] 100 mg PO BID PRN Sodium Chloride 0.9% [Saline Flush] 10 ml FLUSH ASDIRECTED PRN Zolpidem [Ambien] 5 mg PO BEDTIME PRN oxyCODONE 5 mg PO Q4H PRN Peripheral IV Insertion Adult [OM.PC] Routine Resuscitation Status Routine 12/19/16 17:10 Antiembolic Devices [RC] PER UNIT ROUTINE Antiembolic Hose [OM.PC] Per Unit Routine 12/19/16 18:30 Magnesium Oxide 250 mg PO BIDM 12/19/16 21:00 Ferrous Sulfate 325 mg PO BID Montelukast [Singulair] 10 mg PO BEDTIME Sacubitril/Valsartan [Entresto 97 mg-103 mg Tablet] 1 tab PO BID Tamsulosin [Flomax] 0.4 mg PO BEDTIME atorvaSTATin [Lipitor] 20 mg PO BEDTIME 12/19/16 21:41 Benzocaine/Cetylpyrd/Menthol [Cepacol Sore Throat] 1 lozenge MUCMEM Q2H PRN 12/19/16 22:00 Heparin Sodium 5,000 units SUBCUT Q8HR 12/19/16 Dinner 2 Gram Sodium Diet [DIET] 12/20/16 06:00 Omeprazole 20 mg PO ACBRK 12/20/16 08:00 Furosemide [Lasix] 40 mg PO BIDDIURETIC Glimepiride [Amaryl] 2 mg PO WITHBREAKFAST Insulin Aspart [NovoLOG] See Protocol SUBCUT TIDAC 12/20/16 09:00 Aspirin [Ecotrin] 325 mg PO DAILY Loratadine [Claritin] 10 mg PO DAILY Metoprolol Succinate [Toprol XL] 25 mg PO DAILY Tiotropium [Spiriva HandiHaler] 18 mcg INH DAILY amLODIPine [Norvasc] 10 mg PO DAILY 12/20/16 11:18 RT Aerosol Therapy [RC] ASDIRECTED 12/20/16 11:19 CULTURE SPUTUM + SMEAR [RM] Routine 12/20/16 11:21 RT Aerosol Therapy [RC] ASDIRECTED Albuterol [Proventil Neb Soln] 2.5 mg NEB TIDRT 12/20/16 11:22 Admission Status [Patient Status] [ADT] Routine 12/20/16 11:30 Budesonide [Pulmicort] 0.5 mg NEB BIDRT Levofloxacin/Dextrose 5%-Water [Levaquin in D5W 500 MG/100 ML] 500 mg Premix Bag 1 bag IV Q24H 12/21/16 05:15 BASIC METABOLIC PANEL,BMP [CHEM] AM CBC WITH AUTO DIFF [HEME] AM - Plan Plan:: Acute systolic congestive heart failure Last echo at [facility]: 07/2016 with ef 35-40% Received Lasix dose, diuresed well, feeling less short of breath We will continue Lasix twice a day continue valsartan COPD Appears to have acute exacerbation with sputum, wheezing Continue with Singulair, spiriva add Pulmicort twice a day Add scheduled albuterol Use DuoNeb when necessary for shortness of breath Coronary artery disease Treat with aspirin, statin, metoprolol Continue Entresto History of hypertension Continue Norvasc, valsartan Diabetes Continue glimepiride Hold metformin Follow blood sugars use supplemental insulin as needed DVT prophylaxis will be with subcutaneous heparin
[2016-12-20] MEDS ORDERED: Potassium Chloride 10 MEQ Tab.ER PO ONE (11:28)
[2016-12-20] MEDS ORDERED: Furosemide 20 MG Tab PO ONE (11:29)
[2016-12-20] MEDS: Insulin Aspart 100 Units/ML 3 ML Pen SUBCUT SCH ×3 (11:51→17:21)
[2016-12-20] MEDS: Budesonide 0.5 MG/2 ML Neb Susp NEB SCH ×2 (12:05→16:59)
[2016-12-20] MEDS: Levofloxacin/Dextrose 5%-Water 500 MG in Premix Bag 1 BAG IV SCH (12:29)
[2016-12-20] MEDS: Albuterol 0.083% 2.5 MG/3 ML Neb Soln NEB SCH ×3 (12:32→21:37)
[2016-12-20] MEDS: Tamsulosin 0.4 MG Cap.ER PO SCH (21:35)
[2016-12-20] MEDS: atorvaSTATin 20 MG Tab PO SCH (21:35)
[2016-12-20] MEDS: Montelukast 10 MG Tab PO SCH (21:36)
[2016-12-20] MEDS: Sodium Chloride 0.9% 10 ML Syringe FLUSH PRN (21:42)
[2016-12-21] MEDS: Acetaminophen 325 MG Tab PO PRN (01:05)
[2016-12-21] MEDS: Heparin Sodium 5,000 Units/ML Vial SUBCUT SCH (05:47)
[2016-12-21] MEDS: Omeprazole 20 MG Cap.CR PO SCH (05:47)
[2016-12-21] MEDS: Budesonide 0.5 MG/2 ML Neb Susp NEB SCH (07:06)
[2016-12-21] MEDS: Albuterol 0.083% 2.5 MG/3 ML Neb Soln NEB SCH (07:06)
[2016-12-21] MEDS: Aspirin 325 MG Tab.EC PO SCH (08:36)
[2016-12-21] MEDS: Ferrous Sulfate 325 MG Tab PO SCH (08:36)
[2016-12-21] MEDS: Metoprolol Succinate 25 MG Tab.ER PO SCH (08:36)
[2016-12-21] MEDS: Loratadine 10 MG Tab PO SCH (08:36)
[2016-12-21] MEDS: Glimepiride 2 MG Tab PO SCH (08:36)
[2016-12-21] MEDS: amLODIPine 5 MG Tab PO SCH (08:37)
[2016-12-21] MEDS: Furosemide 40 MG Tab PO SCH (08:37)
[2016-12-21] MEDS: Insulin Aspart 100 Units/ML 3 ML Pen SUBCUT SCH ×2 (08:37→11:06)
[2016-12-21] MEDS: SACUBITRIL PO SCH (08:38)
[2016-12-21] MEDS: Tiotropium Inhaler 18 MCG Inhalation Powder Cap Kit of 5 INH SCH (08:38)
[2016-12-21] MEDS: VALSARTAN PO SCH (08:38)
--- NOTE | 2016-12-21 10:14 | PCM.DCSUM1 ---
Discharge Summary - Hospital Course Free Text/Narrative:: Acute systolic congestive heart failure Last echo at [facility]: 07/2016 with ef 35-40% Received IV Lasix dose, diuresed well, feeling less short of breath We will continue Lasix twice a day continue valsartan COPD Appears to have acute exacerbation with sputum, wheezing Continue with Singulair, spiriva add Pulmicort twice a day Use DuoNeb when necessary for shortness of breath Concern was acute bronchitis We will treat with levofloxacin Coronary artery disease Treat with aspirin, statin, metoprolol Continue Entresto History of hypertension Continue Norvasc, valsartan Diabetes Continue glimepiride, metformin - Discharge Data Discharge Date: 12/21/16 Discharge Disposition: Home, Self-Care 01 Condition: Good - Discharge Diagnosis/Problem(s) (1) Acute systolic (congestive) heart failure SNOMED Code(s): 382995341, 063046310 ICD Code: I50.21 - ACUTE SYSTOLIC (CONGESTIVE) HEART FAILURE Status: Acute Current Visit: Yes (2) CAD (coronary artery disease) SNOMED Code(s): 53762469 ICD Code: I25.10 - ATHSCL HEART DISEASE OF [place] CORONARY ARTERY W/O ANG PCTRS Status: Acute Current Visit: No Qualifiers: Coronary Disease-Associated Artery/Lesion type: unspecified vessel or lesion type [place] vs. transplanted heart: [place] heart Associated angina: without angina Qualified Code(s): I25.10 - Atherosclerotic heart disease of [place] coronary artery without angina pectoris (3) COPD (chronic obstructive pulmonary disease) SNOMED Code(s): 84740263 ICD Code: J44.9 - CHRONIC OBSTRUCTIVE PULMONARY DISEASE, UNSPECIFIED Status : Acute Priority: High Current Visit: No Qualifiers: COPD type: COPD with acute exacerbation Qualified Code(s): J44.1 - Chronic obstructive pulmonary disease with (acute) exacerbation (4) Type 2 diabetes mellitus SNOMED Code(s): 56567578 ICD Code: E11.9 - TYPE 2 DIABETES MELLITUS WITHOUT COMPLICATIONS Status: Acute Current Visit: No Qualifiers: Diabetes mellitus complication status: without complication Diabetes mellitus nursing home insulin use: without nursing home use Qualified Code(s): E11.9 - Type 2 diabetes mellitus without complications - Discharge Plan Prescriptions/Med Rec: Budesonide [Pulmicort] 0.5 mg NEB BIDRT #60 neb Levofloxacin 500 mg PO DAILY #10 tablet Home Medications: Home Meds Acetaminophen [Tylenol] 650 mg PO Q4HR PRN 08/25/15 [History] Aspirin [Ecotrin] 325 mg PO DAILY 08/25/15 [History] Montelukast [Singulair] 10 mg PO BEDTIME 08/25/15 [History] Tamsulosin [Flomax] 0.4 mg PO BEDTIME 08/25/15 [History] Tiotropium [Spiriva HandiHaler] 18 mcg INH DAILY 08/25/15 [History] atorvaSTATin [Lipitor] 20 mg PO BEDTIME 08/25/15 [History] metFORMIN [Glucophage] 1,000 mg PO BIDMEALS 08/25/15 [History] Glimepiride [Amaryl] 2 mg PO WITHBREAKFAST 08/26/15 [History] Albuterol/Ipratropium [DuoNeb 3.0-0.5 MG/3 ML] 1 dose INH Q4H PRN 11/10/15 [ History] Ferrous Sulfate 1 tab PO BID 11/10/15 [History] Omeprazole Magnesium [Prilosec Otc] 1 cap PO DAILY 11/10/15 [History] Magnesium 400 mg PO BID 07/24/16 [History] Metoprolol Succinate [Toprol XL] 25 mg PO DAILY 07/24/16 [History] Solifenacin Succinate [Vesicare] 10 mg PO DAILY 07/24/16 [History] amLODIPine [Norvasc] 10 mg PO DAILY 07/24/16 [History] Furosemide 40 mg PO BID 08/17/16 [History] Levalbuterol Tartrate [Xopenex Hfa] 2 puff INH Q4H PRN 08/17/16 [History] Loratadine 10 mg PO DAILY 08/17/16 [History] Sodium Chloride 0.65% [[place] Nasal Jber] 2 sprays NASBOTH QID PRN 08/17/16 [ History] Sacubitril/Valsartan [Entresto 97 mg-103 mg Tablet] 1 tab PO BID 12/19/16 [ History] Budesonide [Pulmicort] 0.5 mg NEB BIDRT #60 neb 12/21/16 [Rx] Levofloxacin 500 mg PO DAILY #10 tablet 12/21/16 [Rx] Forms: ED Department Discharge Referrals: PCP,None [Primary Care Provider] - (James Andres) - General Info Date of Service: 12/21/16 Subjective Update: Presented with shortness of breath He is feeling better. No shortness of breath. Has been walking around in the hospital. No more cough. Could not give a sputum sample No associated chest pain No fever - Review of Systems General: Denies: Fever, Weakness Pulmonary: Denies: Shortness of Breath Cardiovascular: Denies: Chest Pain Gastrointestinal: Denies: Abdominal Pain Neurological: Denies: Confusion - Patient Data Vitals - Most Recent: Last Vital Signs Temp 36.3 C 12/21/16 09:00 Pulse 73 12/21/16 09:00 Resp 20 12/21/16 09:00 BP 122/79 12/21/16 09:00 Pulse Ox 100 12/21/16 09:00 Weight - Most Recent: 104.553 kg I&O - Last 24 hours: Intake & Output 12/20/16 12/21/16 12/21/16 22:59 06:59 14:59 Intake Total 300 440 460 Output Total 1650 Balance -1350 440 460 Lab Results - Last 24 hrs: Laboratory Results - last 24 hr 12/20/16 12/20/16 12/21/16 Range/Units 16:58 21:02 06:05 WBC 5.4 (5.0-10.0) 10^3/uL RBC 3.94 L (4.6-6.2) 10^6/uL Hgb 12.7 L (14.0-18.0) g/dL Hct 39.9 L (40.0-54.0) % MCV 101.3 H (80-100) fL MCH 32.2 (27.0-34.0) pg MCHC 31.8 L (33.0-35.0) g/dL Plt Count 148 L (150-450) 10^3/uL Neut % (Auto) 66.0 (42.2-75.2) % Lymph % (Auto) 18.7 L (20.5-50.1) % [place] % (Auto) 8.2 H (2-8) % Eos % (Auto) 6.7 H (1.0-3.0) % Baso % (Auto) 0.4 (0.0-1.0) % Sodium (135-145) mmol/L Potassium (3.6-5.0) mmol/L Chloride (101-111) mmol/L Carbon Dioxide (21.0-31.0) mmol/L Anion Gap BUN (7-18) mg/dL Creatinine (0.6-1.3) mg/dL Est Cr Clr Drug Dosing mL/min Estimated GFR (MDRD) Glucose (74-105) mg/dL POC Glucose 93 105 (83-110) mg/dl Calcium (8.4-10.2) mg/dl 12/21/16 12/21/16 Range/Units 06:05 07:56 WBC (5.0-10.0) 10^3/uL RBC (4.6-6.2) 10^6/uL Hgb (14.0-18.0) g/dL Hct (40.0-54.0) % MCV (80-100) fL MCH (27.0-34.0) pg MCHC (33.0-35.0) g/dL Plt Count (150-450) 10^3/uL Neut % (Auto) (42.2-75.2) % Lymph % (Auto) (20.5-50.1) % [place] % (Auto) (2-8) % Eos % (Auto) (1.0-3.0) % Baso % (Auto) (0.0-1.0) % Sodium 140 (135-145) mmol/L Potassium 4.1 (3.6-5.0) mmol/L Chloride 102 (101-111) mmol/L Carbon Dioxide 27.0 (21.0-31.0) mmol/L Anion Gap 15.1 BUN 22 H (7-18) mg/dL Creatinine 1.2 (0.6-1.3) mg/dL Est Cr Clr Drug Dosing 54.91 mL/min Estimated GFR (MDRD) 59 Glucose 123 H (74-105) mg/dL POC Glucose 101 (83-110) mg/dl Calcium 8.8 (8.4-10.2) mg/dl Med Orders - Current: Current Medications Acetaminophen (Tylenol) 650 mg PO Q4H PRN PRN Reason: Pain (Mild 1-3)/fever Last Admin: 12/21/16 01:05 Dose: 650 mg Albuterol (Proventil Neb Soln) 2.5 mg NEB TIDRT [facility] Last Admin: 12/21/16 07:06 Dose: 2.5 mg Albuterol/Ipratropium (Duoneb 3.0-0.5 Mg/3 Ml) 3 ml INH Q4H PRN PRN Reason: Shortness of Breath Last Admin: 12/20/16 10:45 Dose: 3 ml Amlodipine Besylate (Norvasc) 10 mg PO DAILY [facility] Last Admin: 12/21/16 08:37 Dose: 10 mg Aspirin (Ecotrin) 325 mg PO DAILY [facility] Last Admin: 12/21/16 08:36 Dose: 325 mg Atorvastatin Calcium (Lipitor) 20 mg PO BEDTIME [facility] Last Admin: 12/20/16 21:35 Dose: 20 mg Benzocaine/Menthol (Cepacol Sore Throat) 1 lozenge MUCMEM Q2H PRN PRN Reason: Cough Last Admin: 12/20/16 10:45 Dose: 1 lozenge Budesonide (Pulmicort) 0.5 mg NEB BIDRT [facility] Last Admin: 12/21/16 07:06 Dose: 0.5 mg Docusate Sodium (Colace) 100 mg PO BID PRN PRN Reason: Constipation Ferrous Sulfate (Ferrous Sulfate) 325 mg PO BID [facility] Last Admin: 12/21/16 08:36 Dose: 325 mg Furosemide (Lasix) 40 mg PO BIDDIURETIC [facility] Last Admin: 12/21/16 08:37 Dose: 40 mg Glimepiride (Amaryl) 2 mg PO WITHBREAKFAST [facility] Last Admin: 12/21/16 08:36 Dose: 2 mg Heparin Sodium (Porcine) (Heparin Sodium) 5,000 units SUBCUT Q8HR [facility] Last Admin: 12/21/16 05:47 Dose: 5,000 units Levofloxacin/Dextrose 500 mg/ (Premix) 100 mls @ 100 mls/hr IV Q24H [facility] Last Admin: 12/20/16 12:29 Dose: 100 mls/hr Insulin Aspart (Novolog) 0 unit SUBCUT TIDAC [facility] PRN Reason: Protocol Last Admin: 12/21/16 08:37 Dose: Not Given Loratadine (Claritin) 10 mg PO DAILY [facility] Last Admin: 12/21/16 08:36 Dose: 10 mg Magnesium Oxide (Magnesium Oxide) 250 mg PO BIDM [facility] Last Admin: 12/21/16 08:36 Dose: 250 mg Metoprolol Succinate (Toprol Xl) 25 mg PO DAILY [facility] Last Admin: 12/21/16 08:36 Dose: 25 mg Montelukast Sodium (Singulair) 10 mg PO BEDTIME [facility] Last Admin: 12/20/16 21:36 Dose: 10 mg Sacubitril/Valsartan (Entresto) 97 Mg- 103 Mg Tablet Own Med 1 tab PO BID [facility] Last Admin: 12/21/16 08:38 Dose: 1 tab Omeprazole (Omeprazole) 20 mg PO ACBRK [facility] Last Admin: 12/21/16 05:47 Dose: 20 mg Oxycodone HCl (Oxycodone) 5 mg PO Q4H PRN PRN Reason: Pain (moderate 4-6) Sodium Chloride (Saline Flush) 10 ml FLUSH ASDIRECTED PRN PRN Reason: Keep Vein Open Last Admin: 12/20/16 21:42 Dose: 10 ml Sodium Chloride (Saline Flush) 10 ml FLUSH ASDIRECTED PRN PRN Reason: Keep Vein Open Tamsulosin HCl (Flomax) 0.4 mg PO BEDTIME [facility] Last Admin: 12/20/16 21:35 Dose: 0.4 mg Tiotropium [place] (Spiriva Handihaler) 18 mcg INH DAILY [facility] Last Admin: 12/21/16 08:38 Dose: 18 mcg Zolpidem Tartrate (Ambien) 5 mg PO BEDTIME PRN PRN Reason: Sleep Discontinued Medications Albuterol/Ipratropium (Duoneb 3.0-0.5 Mg/3 Ml) 3 ml NEB ONETIME ONE Stop: 12/19/16 14:09 Last Admin: 12/19/16 14:27 Dose: 3 ml Furosemide (Lasix) 40 mg IVPUSH NOW ONE Stop: 12/19/16 14:46 Last Admin: 12/19/16 14:52 Dose: 40 mg Furosemide (Lasix) 20 mg PO ONETIME ONE Stop: 12/20/16 11:30 Last Admin: 12/20/16 12:31 Dose: 20 mg Non-Formulary Medication (Magnesium [Magnesium]) 400 mg PO BID [facility] Non-Formulary Medication (Solifenacin Succinate [Vesicare]) 10 mg PO DAILY [facility] Potassium Chloride (Klor-Con 10) 20 meq PO ONETIME ONE Stop: 12/20/16 11:29 Last Admin: 12/20/16 12:31 Dose: 20 meq - Exam General: Reports: Alert, Oriented Neck: Reports: Supple Lungs: Reports: Decreased Breath Sounds. Denies: Wheezing Cardiovascular: Reports: Regular Rate, Regular Rhythm GI/Abdominal Exam: Normal Bowel Sounds, Soft, Non-Tender Extremities: No Pedal Edema *Q Meaningful Use (DIS) - VTE *Q VTE Criteria *Q: - Stroke *Q Stroke Criteria *Q: - AMI *Q AMI Criteria *Q:
[2016-12-21 11:03] VITALS: BP 102/71
[2016-12-21] MEDS: Levofloxacin/Dextrose 5%-Water 500 MG in Premix Bag 1 BAG IV SCH (12:23)
--- NOTE | 2016-12-22 15:07 | EKG ---
12/19/2016- JUDI BUTLER - EKG per my reading shows sinus rhythm with left bundle-branch block with episodes of atrial paced rhythm. [facility] /[id number]
== END 2016-12-21 12:44 | disposition home or self-care (01) | DRG 292 ==
LOC: DL.ED 13:47 → DL.MS 16:01 → OBSVTOIN 12-20 11:22
PROVIDERS: ADMIT Internal Medicine; ATTEND Internal Medicine
DX: R06.02 Shortness of breath (principal); I11.0 Hypertensive heart disease with heart failure; J44.1 Chronic obstructive pulmonary disease with (acute) exacerbation; I50.21 Acute systolic (congestive) heart failure; Z79.82 Long term (current) use of aspirin; Z79.84 Long term (current) use of oral hypoglycemic drugs; I25.10 Atherosclerotic heart disease of native coronary artery without angina pectoris; N17.9 Acute kidney failure, unspecified; E78.00 Pure hypercholesterolemia, unspecified; E11.9 Type 2 diabetes mellitus without complications; Z87.891 Personal history of nicotine dependence; Z88.0 Allergy status to penicillin; Z88.1 Allergy status to other antibiotic agents; Z95.0 Presence of cardiac pacemaker; Z85.46 Personal history of malignant neoplasm of prostate
CPT/HCPCS: 36415 ×2; 71010; 80048; 80053; 81001; 82550; 82553; 82962 ×3; 83880; 84484 ×2; 85025 ×2; 85610; 93005; 94640 ×2; 96372 ×2; 96374; 99285; A9270 ×21; G0378; J1644 ×2; J1940; J7050 ×3; 99220; 99283; J1815-GY; J1956; J7620-GY